=== PATIENT | male | born 1965 | race African-American/Black ===

== ENCOUNTER 2022-03-09 07:56 | Inpatient (IN) ==
[2022-03-09] MEDS ORDERED: PIPERACILLIN/TAZOBACTAM 3,375 MG in SODIUM CHLORIDE 0.9% 100 ML IV STA (09:04)
[2022-03-09 09:06] LABS: Basophils # 0.1 10*3/uL (0.0-0.2); Basophils % 0.7 % (0.0-0.8); Eosinophils # 0.1 10*3/uL (0.0-0.87); Eosinophils % 1.2 % (0.00-10.9); Hematocrit 33.7 VOL% (42.0-52.0); Hemoglobin 11.2 GM/DL (14.0-18.0); Immature Granulocytes % 0.4 %; Immature Granulocytes Absolute 0.04 #; Lymphocytes # 1.4 10*3/uL (1.4-4.0); Lymphocytes % 13.7 % (21.2-54.2); Mean Corpuscular HGB Conc 33.2 GM/DL (32-36); Mean Platelet Volume 9.5 FL (9.6-12.0); Monocytes % 9.5 % (1.7-12.7); Neutrophils % 74.5 % (38.7-73.9); Platelet Count 271 T/CUMM (130-400); Red Blood Count 4.06 MC/CUMM (3.8-5.5); Red Cell Distribution Width 15.9 % (9.3-17.3); White Blood Count 10.5 T/CUMM (4-12)
[2022-03-09] MEDS ORDERED: PIPERACILLIN/TAZOBACTAM 3,375 MG VIAL IV ONE (09:06)
[2022-03-09] MEDS ORDERED: SODIUM CHLORIDE 0.9% 1,000 ML IV STA (09:16)
[2022-03-09 09:28] LABS: Alanine Aminotransferase 20 U/L (16-61); Albumin 3.3 G/DL (3.4-5.0); Alkaline Phosphatase 59 U/L (45-117); Aspartate Amino Transferase 16 U/L (0-37); Bilirubin,Total < 0.39 MG/DL (0.20-1.00); Blood Urea Nitrogen 11 MG/DL (7-18); Calcium 9.5 MG/DL (8.5-10.1); Carbon Dioxide 25 MMOL/L (21-32); Chloride 103 MMOL/L (98-107); Glucose 210 MG/DL (74-106); Osmolality,Calculated 272.2 MOS/KG (273-304); Sodium 134 MMOL/L (136-145); Total Protein 8.3 G/DL (6.4-8.2)
[2022-03-09 10:16] LABS: RBC,Urine 2 /HPF (0-4); Squamous Epithelial Cell,Urine Occasional /HPF (0-10)
[2022-03-09 10:17] LABS: Bilirubin,Urine Negative (Negative); Blood, Urine Trace mg/dL (Negative); Glucose,Urine (UA) Negative (Negative); Ketones,Urine Negative (Negative); Nitrite,Urine Negative (Negative); Protein,Urine Negative (Negative); Urine Appearance Clear (Clear); Urine Color Light Yellow (Yellow); Urine Urobilinogen 0.2 eU/dL (<2.0); Urine pH 5.5 (4.5-8.0)
[2022-03-09 10:34] LABS: Barbiturates Screen,Urine Negative (Negative); Benzodiazepines Screen,Urine Negative (Negative); Cannabinoid Screen,Urine Positive (Negative); Opiate Screen,Urine Negative (Negative); Phencyclidine Screen,Urine Negative (Negative)
[2022-03-09] MEDS ORDERED: DOCUSATE SODIUM 100 MG CAPSULE PO PRN (11:11)
[2022-03-09] MEDS ORDERED: ACETAMINOPHEN 325 MG TABLET PO PRN (11:11)
[2022-03-09] MEDS ORDERED: traZODone 50 MG TABLET PO PRN (11:11)
[2022-03-09] MEDS ORDERED: ONDANSETRON 4 MG/2 ML VIAL IV PRN (11:11)
[2022-03-09] MEDS ORDERED: NICOTINE 21 MG/24 HR PATCH TRANSDERM PRN (11:11)
[2022-03-09] MEDS ORDERED: hydrALAZINE 20 MG/1 ML VIAL IV PRN (11:11)
[2022-03-09] MEDS ORDERED: MORPHINE 2 MG/1 ML SYRINGE IV PRN (11:11)
[2022-03-09] MEDS ORDERED: VANCOMYCIN INJ 1,000 MG in SODIUM CHLORIDE 0.9% 250 ML IV STA (11:16)
[2022-03-09] MEDS ORDERED: SODIUM CHLORIDE 0.9% 1,000 ML IV SCH (11:30)
[2022-03-09 11:33] LABS: % Iron Saturation 10.4 % (18-50)
[2022-03-09 11:48] LABS: Folate 14.73 NG/ML (5.38-24.0)
[2022-03-09] MEDS: INSULIN REGULAR 100 UNIT/ML SUBCUT SCH ×3 (11:54→22:41)
[2022-03-09] MEDS ORDERED: LORazepam 2 MG/1 ML VIAL IV PRN (12:33)
[2022-03-09] MEDS ORDERED: GLUCAGON 1 MG VIAL IM PRN (13:42)
[2022-03-09] MEDS: ENOXAPARIN 40 MG/0.4 ML SYRINGE SUBCUT SCH (13:44)
[2022-03-09] MEDS ORDERED: DEXTROSE 10% 250 ML BAG IV PRN (13:45)
[2022-03-09] MEDS: DIGOXIN 0.125 MG TABLET PO SCH (13:58)
[2022-03-09] MEDS: VANCOMYCIN INJ 1,250 MG in SODIUM CHLORIDE 0.9% 250 ML IV SCH (14:18)
[2022-03-09] MEDS ORDERED: THIAMINE INJ 100 MG, FOLIC ACID INJ 1 MG, MULTIVITAMIN INJ 10 ML in SODIUM CHLORIDE 0.9... IV SCH (15:00)
[2022-03-09] MEDS: 1: MULTIVITAMIN INJ 10 ML, FOLIC ACID INJ 1 MG, THIAMINE INJ 100 MG in SODIUM CHLORIDE 0 IV SCH ×2 (15:25)
[2022-03-09] MEDS: carvediloL 12.5 MG TABLET PO SCH (17:01)
[2022-03-09] MEDS: PIPERACILLIN/TAZOBACTAM 3,375 MG in SODIUM CHLORIDE 0.9% 100 ML IV SCH (17:04)
[2022-03-09] MEDS: ATORVASTATIN 40 MG TABLET PO SCH (22:40)
[2022-03-10] MEDS: PIPERACILLIN/TAZOBACTAM 3,375 MG in SODIUM CHLORIDE 0.9% 100 ML IV SCH ×3 (00:19→20:44)
[2022-03-10] MEDS: VANCOMYCIN INJ 1,250 MG in SODIUM CHLORIDE 0.9% 250 ML IV SCH ×2 (02:08→14:17)
[2022-03-10] MEDS: 1: MULTIVITAMIN INJ 10 ML, FOLIC ACID INJ 1 MG, THIAMINE INJ 100 MG in SODIUM CHLORIDE 0 IV SCH ×2 (04:12→16:55)
[2022-03-10 06:10] LABS: Basophils # 0.1 10*3/uL (0.0-0.2); Basophils % 0.6 % (0.0-0.8); Eosinophils # 0.2 10*3/uL (0.0-0.87); Eosinophils % 1.6 % (0.00-10.9); Hematocrit 29.3 VOL% (42.0-52.0); Hemoglobin 9.6 GM/DL (14.0-18.0); Immature Granulocytes % 0.4 %; Immature Granulocytes Absolute 0.04 #; Lymphocytes # 1.6 10*3/uL (1.4-4.0); Lymphocytes % 17.2 % (21.2-54.2); Mean Corpuscular HGB Conc 32.8 GM/DL (32-36); Mean Corpuscular Volume 81.8 FL (87-102); Mean Platelet Volume 9.4 FL (9.6-12.0); Monocytes # 0.9 10*3/uL (0.11-0.8); Monocytes % 9.3 % (1.7-12.7); Neutrophils % 70.9 % (38.7-73.9); Platelet Count 243 T/CUMM (130-400); Red Blood Count 3.58 MC/CUMM (3.8-5.5); Red Cell Distribution Width 15.6 % (9.3-17.3); White Blood Count 9.3 T/CUMM (4-12)
[2022-03-10 06:29] LABS: Alanine Aminotransferase 15 U/L (16-61); Albumin 2.5 G/DL (3.4-5.0); Alkaline Phosphatase 47 U/L (45-117); Aspartate Amino Transferase 14 U/L (0-37); Bilirubin,Total < 0.39 MG/DL (0.20-1.00); Blood Urea Nitrogen 8 MG/DL (7-18); Calcium 8.4 MG/DL (8.5-10.1); Carbon Dioxide 23 MMOL/L (21-32); Chloride 109 MMOL/L (98-107); Cholesterol 171 MG/DL (50-200); Glucose 119 MG/DL (74-106); HDL Cholesterol 82 MG/DL (40-60); Osmolality,Calculated 271.8 MOS/KG (273-304); Potassium 4.2 MMOL/L (3.5-5.1); Risk Ratio 2.09; Sodium 137 MMOL/L (136-145); Total Protein 6.4 G/DL (6.4-8.2); Triglycerides 88 MG/DL (2-150); VLDL Cholesterol 17.6 MG/DL
[2022-03-10 06:30] LABS: Lymphocytes 19 % (20-55); Target Cells Slight; Total Cells Counted 100
[2022-03-10 06:31] LABS: Hypochromia Slight; Microcytosis Slight; Polychromasia Slight
[2022-03-10 06:32] LABS: Platelet Estimate Normal
[2022-03-10] MEDS ORDERED: CLINDAMYCIN INJ 900 MG/50 ML PREMIX IV ONE (08:21)
[2022-03-10] MEDS ORDERED: LIDOCAINE 2% 5 ML VIAL ONE (08:46)
[2022-03-10] MEDS ORDERED: propofoL 200 MG/20 ML VIAL IV ONE (08:46)
[2022-03-10] MEDS ORDERED: fentaNYL 100 MCG/2 ML VIAL ONE (08:46)
[2022-03-10] MEDS ORDERED: MIDAZOLAM 2 MG/2 ML VIAL ONE (08:46)
[2022-03-10] MEDS ORDERED: LACTATED RINGERS 1,000 ML IV SCH (09:30)
[2022-03-10] MEDS ORDERED: BUPIVACAINE MPF 0.25% 10 ML VIAL ONE (09:31)
[2022-03-10] MEDS ORDERED: LIDOCAINE 1%/EPI INJ 20 ML VIAL ONE (09:31)
[2022-03-10] MEDS ORDERED: PHENYLEPHRINE 1 MG/10 ML SYRINGE IV ONE (10:07)
[2022-03-10] MEDS: carvediloL 12.5 MG TABLET PO SCH ×2 (11:32→16:56)
[2022-03-10] MEDS: ASPIRIN EC 81 MG TABLET PO SCH (11:32)
[2022-03-10] MEDS: lisinopriL 20 MG TABLET PO SCH (11:32)
[2022-03-10] MEDS: PANTOPRAZOLE 40 MG TABLET PO SCH (11:32)
[2022-03-10] MEDS: INSULIN REGULAR 100 UNIT/ML SUBCUT SCH ×4 (11:33→20:54)
[2022-03-10] MEDS: DIGOXIN 0.125 MG TABLET PO SCH (14:16)
[2022-03-10] MEDS: FERRIC GLUCONATE COMPLEX 125 MG in SODIUM CHLORIDE 0.9% 100 ML IV SCH (16:55)
[2022-03-10] MEDS: ATORVASTATIN 40 MG TABLET PO SCH (20:44)
[2022-03-10] MEDS: ENOXAPARIN 40 MG/0.4 ML SYRINGE SUBCUT SCH (20:54)
[2022-03-11] MEDS: VANCOMYCIN INJ 1,250 MG in SODIUM CHLORIDE 0.9% 250 ML IV SCH ×2 (01:40→14:55)
[2022-03-11] MEDS: PIPERACILLIN/TAZOBACTAM 3,375 MG in SODIUM CHLORIDE 0.9% 100 ML IV SCH ×3 (04:04→21:17)
[2022-03-11] MEDS: INSULIN REGULAR 100 UNIT/ML SUBCUT SCH ×4 (08:33→21:19)
[2022-03-11] MEDS: 1: MULTIVITAMIN INJ 10 ML, FOLIC ACID INJ 1 MG, THIAMINE INJ 100 MG in SODIUM CHLORIDE 0 IV SCH (08:37)
[2022-03-11 08:51] LABS: Basophils # 0.1 10*3/uL (0.0-0.2); Basophils % 0.5 % (0.0-0.8); Eosinophils # 0.2 10*3/uL (0.0-0.87); Eosinophils % 2.3 % (0.00-10.9); Hematocrit 29.5 VOL% (42.0-52.0); Hemoglobin 9.8 GM/DL (14.0-18.0); Immature Granulocytes % 0.4 %; Immature Granulocytes Absolute 0.04 #; Lymphocytes # 1.5 10*3/uL (1.4-4.0); Lymphocytes % 16.3 % (21.2-54.2); Mean Corpuscular HGB Conc 33.2 GM/DL (32-36); Mean Corpuscular Volume 82.2 FL (87-102); Mean Platelet Volume 8.8 FL (9.6-12.0); Monocytes # 0.9 10*3/uL (0.11-0.8); Monocytes % 9.4 % (1.7-12.7); Neutrophils % 71.1 % (38.7-73.9); Platelet Count 232 T/CUMM (130-400); Red Blood Count 3.59 MC/CUMM (3.8-5.5); Red Cell Distribution Width 15.5 % (9.3-17.3); White Blood Count 9.1 T/CUMM (4-12)
[2022-03-11] MEDS ORDERED: FERRIC GLUCONATE COMPLEX 125 MG in SODIUM CHLORIDE 0.9% 100 ML IV SCH (09:00)
[2022-03-11 09:07] LABS: Calcium 8.7 MG/DL (8.5-10.1); Osmolality,Calculated 276.5 MOS/KG (273-304); Potassium 4.5 MMOL/L (3.5-5.1)
[2022-03-11] MEDS: ASPIRIN EC 81 MG TABLET PO SCH (09:50)
[2022-03-11] MEDS: FERRIC GLUCONATE COMPLEX 125 MG in SODIUM CHLORIDE 0.9% 100 ML IV SCH (09:50)
[2022-03-11] MEDS: PANTOPRAZOLE 40 MG TABLET PO SCH (09:50)
[2022-03-11] MEDS: lisinopriL 20 MG TABLET PO SCH (09:50)
[2022-03-11] MEDS: carvediloL 12.5 MG TABLET PO SCH ×2 (09:50→17:51)
[2022-03-11] MEDS ORDERED: MAGNESIUM SULF RIDER 2 GM/50 ML PREMIX IV ONE (13:00)
[2022-03-11] MEDS: SODIUM HYPOCHLORITE 0.25% IRRIG 473 ML BOTTLE TOP SCH (13:05)
[2022-03-11] MEDS: DIGOXIN 0.125 MG TABLET PO SCH (13:05)
[2022-03-11] MEDS: SODIUM CHLORIDE 0.9% 1,000 ML IV SCH (18:34)
[2022-03-11] MEDS: ENOXAPARIN 40 MG/0.4 ML SYRINGE SUBCUT SCH (21:19)
[2022-03-11] MEDS: ATORVASTATIN 40 MG TABLET PO SCH (21:19)
[2022-03-12] MEDS: VANCOMYCIN INJ 1,250 MG in SODIUM CHLORIDE 0.9% 250 ML IV SCH ×2 (01:36→17:01)
[2022-03-12] MEDS: PIPERACILLIN/TAZOBACTAM 3,375 MG in SODIUM CHLORIDE 0.9% 100 ML IV SCH ×2 (03:51→13:01)
[2022-03-12 05:44] LABS: Basophils # 0.1 10*3/uL (0.0-0.2); Basophils % 0.8 % (0.0-0.8); Eosinophils # 0.2 10*3/uL (0.0-0.87); Eosinophils % 2.4 % (0.00-10.9); Hematocrit 27.7 VOL% (42.0-52.0); Hemoglobin 9.2 GM/DL (14.0-18.0); Immature Granulocytes % 0.6 %; Immature Granulocytes Absolute 0.05 #; Lymphocytes # 1.9 10*3/uL (1.4-4.0); Lymphocytes % 22.8 % (21.2-54.2); Mean Corpuscular HGB Conc 33.2 GM/DL (32-36); Mean Platelet Volume 9.7 FL (9.6-12.0); Monocytes # 0.8 10*3/uL (0.11-0.8); Monocytes % 9.4 % (1.7-12.7); Platelet Count 250 T/CUMM (130-400); Red Blood Count 3.38 MC/CUMM (3.8-5.5); Red Cell Distribution Width 15.4 % (9.3-17.3); White Blood Count 8.3 T/CUMM (4-12)
[2022-03-12 06:06] LABS: Eosinophils 3 % (0-10); Lymphocytes 18 % (20-55); Total Cells Counted 100
[2022-03-12 06:07] LABS: Hypochromia 1+; Microcytosis 1+; Target Cells Few
[2022-03-12 06:08] LABS: Platelet Estimate Normal
[2022-03-12 06:13] LABS: Calcium 8.4 MG/DL (8.5-10.1); Osmolality,Calculated 278.3 MOS/KG (273-304); Potassium 4.3 MMOL/L (3.5-5.1)
[2022-03-12] MEDS: INSULIN REGULAR 100 UNIT/ML SUBCUT SCH ×4 (08:09→20:15)
[2022-03-12] MEDS: SODIUM CHLORIDE 0.9% 1,000 ML IV SCH (08:12)
[2022-03-12] MEDS: FERRIC GLUCONATE COMPLEX 125 MG in SODIUM CHLORIDE 0.9% 100 ML IV SCH (08:55)
[2022-03-12] MEDS: carvediloL 12.5 MG TABLET PO SCH ×2 (08:57→17:08)
[2022-03-12] MEDS: PANTOPRAZOLE 40 MG TABLET PO SCH (08:57)
[2022-03-12] MEDS: ASPIRIN EC 81 MG TABLET PO SCH (08:58)
[2022-03-12] MEDS: THIAMINE 100 MG TABLET PO SCH (08:58)
[2022-03-12] MEDS: lisinopriL 20 MG TABLET PO SCH (08:58)
[2022-03-12] MEDS: MULTIVITAMIN (CENTRUM) TABLET PO SCH (08:58)
[2022-03-12] MEDS: FOLIC ACID 1 MG TABLET PO SCH (08:58)
[2022-03-12] MEDS: SODIUM HYPOCHLORITE 0.25% IRRIG 473 ML BOTTLE TOP SCH (13:02)
[2022-03-12] MEDS: DIGOXIN 0.125 MG TABLET PO SCH (15:26)
[2022-03-12] MEDS: AMPICILLIN INJ 2,000 MG in SODIUM CHLORIDE 0.9% 100 ML IV SCH ×2 (18:01→21:34)
[2022-03-12] MEDS: ENOXAPARIN 40 MG/0.4 ML SYRINGE SUBCUT SCH (20:24)
[2022-03-12] MEDS: LINEZOLID 600 MG TABLET PO SCH (20:24)
[2022-03-12] MEDS: ATORVASTATIN 40 MG TABLET PO SCH (20:24)
[2022-03-13] MEDS: AMPICILLIN INJ 2,000 MG in SODIUM CHLORIDE 0.9% 100 ML IV SCH ×6 (01:25→23:05)
[2022-03-13 05:38] LABS: Basophils # 0.1 10*3/uL (0.0-0.2); Basophils % 0.6 % (0.0-0.8); Eosinophils # 0.2 10*3/uL (0.0-0.87); Eosinophils % 2.8 % (0.00-10.9); Hematocrit 28.5 VOL% (42.0-52.0); Hemoglobin 9.2 GM/DL (14.0-18.0); Immature Granulocytes % 0.8 %; Immature Granulocytes Absolute 0.06 #; Lymphocytes # 1.8 10*3/uL (1.4-4.0); Lymphocytes % 22.2 % (21.2-54.2); Mean Corpuscular HGB Conc 32.3 GM/DL (32-36); Mean Corpuscular Volume 82.6 FL (87-102); Mean Platelet Volume 9.5 FL (9.6-12.0); Monocytes # 0.8 10*3/uL (0.11-0.8); Monocytes % 9.9 % (1.7-12.7); Neutrophils % 63.7 % (38.7-73.9); Platelet Count 272 T/CUMM (130-400); Red Blood Count 3.45 MC/CUMM (3.8-5.5); Red Cell Distribution Width 15.4 % (9.3-17.3)
[2022-03-13 05:55] LABS: Calcium 8.7 MG/DL (8.5-10.1); Potassium 4.4 MMOL/L (3.5-5.1)
[2022-03-13 06:02] LABS: Eosinophils 2 % (0-10); Hypochromia Slight; Lymphocytes 29 % (20-55); Microcytosis 1+; Nucleated Red Blood Cells 2 /100 WBC (0-5); Total Cells Counted 100
[2022-03-13 06:03] LABS: Ovalocytes Slight; Platelet Estimate Normal; Polychromasia Slight; Target Cells Few
[2022-03-13] MEDS: lisinopriL 20 MG TABLET PO SCH (09:12)
[2022-03-13] MEDS: LINEZOLID 600 MG TABLET PO SCH ×2 (09:12→22:20)
[2022-03-13] MEDS: ASPIRIN EC 81 MG TABLET PO SCH (09:12)
[2022-03-13] MEDS: carvediloL 12.5 MG TABLET PO SCH ×2 (09:12→17:20)
[2022-03-13] MEDS: FOLIC ACID 1 MG TABLET PO SCH (09:12)
[2022-03-13] MEDS: MULTIVITAMIN (CENTRUM) TABLET PO SCH (09:12)
[2022-03-13] MEDS: PANTOPRAZOLE 40 MG TABLET PO SCH (09:13)
[2022-03-13] MEDS: FERRIC GLUCONATE COMPLEX 125 MG in SODIUM CHLORIDE 0.9% 100 ML IV SCH (09:13)
[2022-03-13] MEDS: THIAMINE 100 MG TABLET PO SCH (09:13)
[2022-03-13] MEDS: INSULIN REGULAR 100 UNIT/ML SUBCUT SCH ×4 (09:16→22:22)
[2022-03-13] MEDS: SODIUM CHLORIDE 0.9% 1,000 ML IV SCH ×2 (12:20→13:45)
[2022-03-13] MEDS: SODIUM HYPOCHLORITE 0.25% IRRIG 473 ML BOTTLE TOP SCH (13:00)
[2022-03-13] MEDS: DIGOXIN 0.125 MG TABLET PO SCH (13:40)
[2022-03-13] MEDS: ATORVASTATIN 40 MG TABLET PO SCH (22:20)
[2022-03-13] MEDS: ENOXAPARIN 40 MG/0.4 ML SYRINGE SUBCUT SCH (22:20)
[2022-03-14] MEDS: AMPICILLIN INJ 2,000 MG in SODIUM CHLORIDE 0.9% 100 ML IV SCH ×3 (02:36→13:37)
[2022-03-14 05:32] LABS: Basophils # 0.1 10*3/uL (0.0-0.2); Basophils % 0.7 % (0.0-0.8); Eosinophils # 0.2 10*3/uL (0.0-0.87); Eosinophils % 2.5 % (0.00-10.9); Hematocrit 29.4 VOL% (42.0-52.0); Hemoglobin 9.8 GM/DL (14.0-18.0); Immature Granulocytes % 0.5 %; Immature Granulocytes Absolute 0.04 #; Lymphocytes # 1.5 10*3/uL (1.4-4.0); Lymphocytes % 20.1 % (21.2-54.2); Mean Corpuscular HGB Conc 33.3 GM/DL (32-36); Mean Corpuscular Volume 83.1 FL (87-102); Mean Platelet Volume 8.9 FL (9.6-12.0); Monocytes # 0.7 10*3/uL (0.11-0.8); Monocytes % 9.8 % (1.7-12.7); Neutrophils % 66.4 % (38.7-73.9); Platelet Count 245 T/CUMM (130-400); Red Blood Count 3.54 MC/CUMM (3.8-5.5); Red Cell Distribution Width 15.5 % (9.3-17.3); White Blood Count 7.5 T/CUMM (4-12)
[2022-03-14 05:51] LABS: Calcium 8.6 MG/DL (8.5-10.1); Osmolality,Calculated 279.3 MOS/KG (273-304); Potassium 3.6 MMOL/L (3.5-5.1)
[2022-03-14] MEDS: SODIUM CHLORIDE 0.9% 1,000 ML IV SCH ×2 (06:09→13:37)
[2022-03-14 07:19] LABS: Anisocytosis 2+; Platelet Estimate Normal; Target Cells Few
[2022-03-14] MEDS ORDERED: MAGNESIUM SULF RIDER 2 GM/50 ML PREMIX IV ONE (08:08)
[2022-03-14] MEDS: INSULIN REGULAR 100 UNIT/ML SUBCUT SCH ×2 (08:15→11:34)
[2022-03-14] MEDS: carvediloL 12.5 MG TABLET PO SCH (10:50)
[2022-03-14] MEDS: ASPIRIN EC 81 MG TABLET PO SCH (10:51)
[2022-03-14] MEDS: SODIUM HYPOCHLORITE 0.25% IRRIG 473 ML BOTTLE TOP SCH (10:51)
[2022-03-14] MEDS: MULTIVITAMIN (CENTRUM) TABLET PO SCH (10:51)
[2022-03-14] MEDS: FERRIC GLUCONATE COMPLEX 125 MG in SODIUM CHLORIDE 0.9% 100 ML IV SCH (10:51)
[2022-03-14] MEDS: lisinopriL 20 MG TABLET PO SCH (10:52)
[2022-03-14] MEDS: THIAMINE 100 MG TABLET PO SCH (10:52)
[2022-03-14] MEDS: LINEZOLID 600 MG TABLET PO SCH (10:52)
[2022-03-14] MEDS: FOLIC ACID 1 MG TABLET PO SCH (10:52)
[2022-03-14] MEDS: PANTOPRAZOLE 40 MG TABLET PO SCH (10:52)
[2022-03-14 11:15] VITALS: BP 171/79
[2022-03-14] MEDS: DIGOXIN 0.125 MG TABLET PO SCH (13:37)
== END 2022-03-14 14:44 | disposition home health service (06) | DRG 314 ==
LOC: N.ED 07:56 → N.EDINP 11:10 → SUATTDRO 11:10 → N.EDINP 12:34 → N.2E 12:40
PROVIDERS: ADMIT Internal Medicine; ATTEND Emergency Medicine